=== PATIENT | female | born 1945 | race Caucasian/White ===

== ENCOUNTER 2018-03-09 06:11 | Day surgery (SDC) | payer OTHER, BC ==
[2018-03-03 08:59] VITALS: Ht 160 cm; Wt 133.0 kg
--- NOTE | 2018-03-03 09:31 | PAT Medication Instructions ---
"Service Date Mar 03, 2018. Current Home Medication List Aspirin (Aspirin Ec), 81 MG PO QAM Citalopram (Citalopram Hydrobromide), 40 MG PO QAM Oidjqdtaaql-Mglrbtibupg-Qdj C- (Glucosamine Chondroitin), 1 TAB PO QAM Lorazepam (Lorazepam), 1 TAB PO HS Metformin Hcl (Glucophage), 500 MG PO QAM Nystatin/Triamcinolone (Mycolog ||), 1 DOSE TOP PRN [Atorvastatin], 1 TAB PO QAM [Imodium], 1 TAB PO QAM Medication Instructions For Your Scheduled Surgery -Check with your surgeon for: Aspirin (Aspirin Ec), 81 MG PO QAM - Hold the following medications starting today (03/03): Ydfdedonhrf-Gdcdeitbmmk-Cfq C- (Glucosamine Chondroitin), 1 TAB PO QAM - Hold the following medications 24 hours prior to surgery: Nystatin/Triamcinolone (Mycolog ||), 1 DOSE TOP PRN - Hold the following medications the morning of surgery: Metformin Hcl (Glucophage), 500 MG PO QAM [Imodium], 1 TAB PO QAM - Take the following medications the morning of surgery with a sip of water: Citalopram (Citalopram Hydrobromide), 40 MG PO QAM [Atorvastatin], 1 TAB PO QAM - Take the following medications as scheduled the night before surgery: Lorazepam (Lorazepam), 1 TAB PO HS If you have any questions please call us at [phone] or [phone] or [phone]"
[2018-03-03 10:47] LABS: BASO % 0.3 %; BASO ABS # 0.03 K/uL (0-0.2); EOS % 1.4 %; EOS ABS # 0.13 K/uL (0-0.5); HEMATOCRIT 38.6 % (37-47); HEMOGLOBIN 12.1 g/dL (12.0-16.0); IG# 0.02 K/uL (0.00-0.02); LYMPH % 26.3 %; LYMPH ABS # 2.38 K/uL (1.2-3.4); MEAN CELL VOLUME 89.6 fL (80-100); MEAN CORPUSCULAR HEMOGLOBIN 28.1 pg (25-34); MEAN CORPUSCULAR HGB CONC 31.3 g/dl (32-36); MEAN PLATELET VOLUME 9.6 fL (7.4-10.4); MONO % 7.3 %; MONO ABS # 0.66 K/uL (0.11-0.59); NEUT % 64.5 %; NEUT ABS # 5.84 K/uL (1.4-6.5); PLATELET COUNT 163 K/uL (130-400); RED CELL DISTRIBUTION WIDTH SD 45.9 fL (36.4-46.3); WHITE BLOOD COUNT 9.06 K/uL (4.8-10.8)
--- NOTE | 2018-03-06 10:55 | HISTORY & PHYSICAL EXAMINATION ---
DATE OF ADMISSION: 03/09/2018 CHIEF COMPLAINT: Left wrist pain, discomfort, and swelling. HISTORY OF PRESENT ILLNESS: The patient is a 72-year-old right hand dominant female who presents for treatment of her left wrist. She does have a history of a ganglion excised on her left wrist by Dr. Vickers years ago. Not exactly sure when this was done. It has come back. It is pretty painful for her. She is not interested in doing more aspirations and injections and would just like to have better it is excised. She does have some local numbness around the incision area. It bothers her with activities. PAST MEDICAL HISTORY: Significant for 1. Obesity. 2. Arthritis. 3. Basal cell skin cancer. 4. Anxiety/depression. 5. Diabetes. PREVIOUS SURGICAL HISTORY: Include: 1. Cholecystectomy. 2. Knee replacement. 3. Back surgery. 4. Rotator cuff repair. 5. Hysterectomy. 6. Ganglion surgery. ALLERGIES: VICODIN, OXYCODONE, PERCOCET. CURRENT MEDICINES: Include; 1. Nystatin. 2. Metformin. 3. Citalopram. 4. Lorazepam. 5. Baby aspirin. 6. Glucosamine. SOCIAL HISTORY: Shows a 72-year-old female patient from [place]. Does not smoke. FAMILY HISTORY: Noncontributory. REVIEW OF SYSTEMS: Significant for diabetes. Denies any chest pain or shortness of breath. No numbness or radicular symptoms. No bleeding problems. PHYSICAL EXAMINATION: GENERAL: Reveals a pleasant, middle-aged female. HEENT: Benign. NECK: Supple. No lymphadenopathy. LUNGS: Clear to auscultation. HEART: Regular rate and rhythm. ABDOMEN: Soft, nontender, nondistended. EXTREMITIES: Grossly neurovascularly intact except as follows: Examination of left wrist reveals an obvious volar radial ganglion. She does have a transverse incision just distal to this area. Mild pain with grind testing. No triggering or locking. X-RAYS: X-rays of the left wrist were reviewed. Show some CMC joint arthritis. A little bit of radial carpal joint arthritis as well. ASSESSMENT: A 72-year-old white female with left wrist pain and mass consistent with recurrent volar wrist ganglion after excision years ago. 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 PLAN: We talked about treatment. She would like to have this ganglion excised. We will just excise the ganglion. I do not think at this point it is worth addressing her arthritis underlying this as it makes it a much bigger operation; her pain seems to be coming from the ganglion. The risks and benefits of excision of left wrist ganglion were explained to the patient to include but not limited to DVT, PE, , infection, neurological injury, vascular injury, bleeding problem, reoccurrence, persistent pain, etc. The patient understands and desires to proceed. Informed consent was obtained. We will plan on doing this in the surgical center, but due to her BMI, we have to do this in the main operating room for safety purposes. She should still be able to be discharged to home with a 2-week followup.
[~2018-03-09] VITALS: Ht 160 cm; Wt 133.0 kg
[~2018-03-09 06:11] MED LIST: ASPI81TA28 PO; ATORVASTATIN PO; CITA40TA4 PO; GLC/500 PO; GLUCTAB7 PO; IMODIUM PO; LACTATED RINGER'S 1000ML 1,000 ML IV SCH; LORA0.5T12 PO; NYSTCRE11 TOP
--- NOTE | 2018-03-09 06:47 | History & Physical Bridge Note ---
H&P Re-Evaluation Bridge Note: I have examined the patient, reviewed the History & Physical and in the interval since the performance of the History & Physical I have noted the following changes of clinical significance: No changes noted
[2018-03-09 07:04] VITALS: BP 170/67; PULSE 73; TEMP 36.8; O2SAT 95
[2018-03-09] MEDS ORDERED: LIDOCAINE HCL 2% 2 ML VIAL (20MG/ML) ONE (07:34)
[2018-03-09] MEDS ORDERED: FENTANYL CITRATE INJ 50 MCG/1 ML 2 ML VIAL ONE (07:34)
[2018-03-09] MEDS ORDERED: MIDAZOLAM HCL 1 MG/ML 2ML VIAL ONE ×2 (07:34→08:49)
[2018-03-09] MEDS ORDERED: DEXAMETHASONE SOD INJ 4 MG/ML VIAL ONE (07:34)
[2018-03-09] MEDS ORDERED: GLYCOPYRROLATE INJ 0.2 MG/ML VIAL ONE (07:34)
[2018-03-09] MEDS ORDERED: ONDANSETRON INJ 2 MG/ML 2 ML VIAL ONE (07:34)
[2018-03-09] MEDS ORDERED: PROPOFOL IV EMULSION 10 MG/ML 20 ML VIAL ONE (07:34)
[2018-03-09] MEDS ORDERED: NEOSTIGMINE METHYLSULFATE 5 MG/5 ML SYR ONE (07:34)
[2018-03-09] MEDS ORDERED: SUCCINYLCHOLINE CHLORIDE 20 MG/ML 10 ML VIAL IV ONE (07:35)
[2018-03-09] MEDS ORDERED: BUPIVACAINE/EPINEPHRINE 0.5% MPF 1:200,000 30 ML VIAL ONE (09:03)
[2018-03-09] MEDS ORDERED: CEFAZOLIN SOD 1 GM VIAL ONE (09:20)
[2018-03-09] MEDS ORDERED: SODIUM CHLORIDE 0.9% INJ 10 ML VIAL ONE (09:20)
[2018-03-09] MEDS ORDERED: SODIUM CHLORIDE 0.9% 1000ML 1,000 ML IV SCH (09:46)
--- NOTE | 2018-03-09 09:49 | [facility] Post Operative Brief Note ---
Immediate Operative Summary Operative Date March 09, 2018. Pre-Operative Diagnosis Recurrent Volar Ganglion Cyst Left Wrist Post-Operative Diagnosis Recurrent Volar Ganglion Cyst Left Wrist Procedure(s) Performed Excision Ganglion Cyst Left Wrist Surgeon Dr. Ramesh Toe Lining Closer Surgeon(s) XAVIER Jimenez Estimated Blood Loss 10 ml Findings Consistent with Post-Op Diagnosis Fluids (cc crystalloids) 900 cc Specimens A. Left Ganglion Cyst Drains None Anesthesia Type General Complication(s) none Disposition Accompanied Pt To Recover: no Disposition: Recovery Room / PACU
[2018-03-09] MEDS ORDERED: IBUP-1451 PO (09:59)
[2018-03-09] MEDS ORDERED: PROMETHAZINE HCL INJ 12.5 MG in SODIUM CHLORIDE 0.9% 50ML 50 ML IV SCH (10:00)
[2018-03-09] MEDS ORDERED: ATROPINE SULFATE 0.1 MG/ML 5ML SYR IV PRN (10:00)
[2018-03-09] MEDS ORDERED: EpHEDrine SULFATE INJ 50 MG/ML AMP IV PRN (10:00)
--- NOTE | 2018-03-09 10:00 | Discharge Instructions ---
Discharge Instructions Date of Service March 09, 2018. Admission Reason for Admission: Ganglion and Cyst of Synovium, Tendon and Bursa Discharge Discharge Diagnosis / Problem: left wrist ganglion cyst Discharge Goals Goal(s): Decrease discomfort, Therapeutic intervention Activity Recommendations Activity Limitations: per Instructions/Follow-up section . Instructions / Follow-Up Instructions / Follow-Up MEDICATIONS: * Resume previous medications unless instructed otherwise by your surgeon. * Always take pain medication on a full stomach or with food to avoid upset stomach. * Do not drink alcohol or drive while taking narcotics. * Ibuprofen or Tylenol may be taken if narcotic not needed. SPECIAL CARE INSTRUCTIONS: __ None __ Keep extremity elevated and iced x 48 hours; apply ice 20-30 minutes 8-10 times/day. May remove at night. __ Sling __24 hrs/day __ Remove at night __ Shoulder Immobilizer __ 24 hrs/day __ Remove at night _x_ Dressing _x_ Maintain until seen in office, may shower with plastic over site __ Remove dressings in 24-48 hours and then may shower __ Cover incisions with band-aids after showering __ Do not remove steri-strips Call physician if chills or temperature rises above 102 degrees or pain unrelieved by prescribed pain medications at . . follow up in 2 weeks Current Hospital Diet Patient's current hospital diet: Discharge Diet Recommended Diet: Regular Diet Procedures Procedures Performed: Excision Ganglion Cyst Left Wrist Pending Studies Studies pending at discharge: no Medical Emergencies . Who to Call and When: Medical Emergencies: If at any time you feel your situation is an emergency, please call 911 immediately. . Non-Emergent Contact Non-Emergency issues call your: Surgeon . "Provider Documentation" section prepared by Manohar Naidu. .
--- NOTE | 2018-03-09 10:33 | OPERATIVE REPORT ---
DATE OF OPERATION: 03/09/2018 SURGEON: Kevin Ramesh MD ELEMENTARY SPECIAL EDUCATION TEACHER: XAVIER Pierre PREOPERATIVE DIAGNOSIS: Left recurrent volar wrist ganglion. POSTOPERATIVE DIAGNOSIS: Same. PROCEDURE PERFORMED: Excisional biopsy of left volar wrist mass/probable ganglion. COMPLICATIONS: None. ESTIMATED BLOOD LOSS: 10 mL. TOURNIQUET TIME: 12 minutes at 250 mmHg. ANESTHESIA: General. SPECIMENS: Left wrist mass sent for pathology. OPERATIVE INDICATIONS: The patient is a 72-year-old female who has had a history of a left wrist mass. She had this excised years ago by Dr. Vickers in [place]. Doing well for a while, but the mass has recurred. It was causing her symptoms and she did not want any conservative treatment, wanting to have just this excised. She does have some underlying radiocarpal as well as CMC joint arthritis and we elected to proceed with excision of a ganglion without addressing knee arthritis based on her request and goals for the surgery. OPERATIVE FINDINGS: Operative findings revealed a volar wrist mass. It was coming from the radial carpal joint. It was intimately adherent to the radial artery. OPERATIVE PROCEDURE: The patient was taken to the operating room, identified and placed on the operating table in supine position. All contact areas were appropriately padded. IV antibiotics followed by anesthesia team. A general anesthetic was implemented by anesthesia team. A left forearm tourniquet was placed. The patient did receive IV antibiotics. Left arm was then prepped and draped in usual sterile fashion. The left arm was elevated and exsanguinated with Esmarch and tourniquet was placed at 250 mmHg. A Lashon type incision was made over the volar wrist mass extending just distal to the wrist crease. Sharp dissection was cut through subcutaneous tissue directly down to the mass. I then dissected circumferentially around the mass. The radial artery was intimately entwined on the ulnar side of this mass, and I had to very carefully dissect this off and initially left a little of the wall of the ganglion attached to the artery. I then dissected down and excised the stalk of the ganglion along with a portion of the radial carpal capsule. The mass was sent off for pathology. I then dissected the wall of this mass off the radial artery. I cauterized extensively in this area. We palpated to see if there is any other fluid and there was another lobe of this mass which we also excised. Once this was complete, I did inject locally with about 15 mL of 0.5% Marcaine with epinephrine. The tourniquet was then let down for a tourniquet time of 12 minutes. Hemostasis was assured using electrocautery. We were very careful to obtain meticulous hemostasis. I then irrigated the wound again and then closed the skin with 5-0 nylon suture in a horizontal mattress fashion. The knee was then cleaned and dried and a sterile dressing of Xeroform, 4 x 4's, sterile cast padding and an Luis bandage were applied. The patient then brought out of general anesthesia and transferred to the recovery room in stable condition. The patient tolerated the procedure well with no complications. All needle and sponge counts were correct at the end of the operation. I attest to the content of the Intraoperative Record and any orders documented therein. Any exceptions are noted below. LISSYD
[2018-03-09 10:45] VITALS: BP 172/75; PULSE 92; TEMP 36.6; O2SAT 91
--- NOTE | 2018-03-09 11:14 | Anesthesiology Progress Note ---
Anesthesia Post Op Note Date & Time March 09, 2018 at 11:14 Vital Signs Pain Intensity: 0 Vital Signs Past 12 Hours Date Time Temp Pulse Resp B/P (MAP) Pulse Ox O2 Delivery O2 Flow Rate FiO2 03/09/18 10:40 37.0 93 Nasal Cannula 2 03/09/18 10:38 89 18 03/09/18 10:38 90 18 97 03/09/18 10:36 147/71 03/09/18 10:33 92 14 03/09/18 10:33 92 14 96 03/09/18 10:31 153/72 03/09/18 10:28 87 19 03/09/18 10:28 86 19 94 03/09/18 10:26 163/73 03/09/18 10:23 93 21 03/09/18 10:23 92 21 92 03/09/18 10:21 163/78 03/09/18 10:18 94 23 03/09/18 10:18 94 23 95 03/09/18 10:17 93 21 03/09/18 10:17 93 21 97 03/09/18 10:16 160/82 03/09/18 10:12 89 22 03/09/18 10:12 88 22 95 03/09/18 10:11 162/76 03/09/18 10:07 89 22 96 03/09/18 10:07 88 22 03/09/18 10:06 179/78 03/09/18 10:05 91 22 03/09/18 10:05 91 22 96 03/09/18 10:03 177/77 03/09/18 10:00 98 23 96 03/09/18 10:00 97 23 03/09/18 09:56 186/109 03/09/18 09:55 105 11 03/09/18 09:55 36.6 98 20 186/109 95 Oxymask 10 03/09/18 09:55 105 11 93 03/09/18 07:04 36.8 73 18 170/67 (101) 95 Room Air Notes Mental Status: alert / awake / arousable, participated in evaluation Pt Amnestic to Procedure: Yes Nausea / Vomiting: adequately controlled Pain: adequately controlled Airway Patency, RR, SpO2: stable & adequate BP & HR: stable & adequate Hydration State: stable & adequate Anesthetic Complications: no major complications apparent
[2018-03-09 11:15] VITALS: BP 153/69; PULSE 79; O2SAT 92
[2018-03-09 11:45] VITALS: BP 135/64; PULSE 80; TEMP 36.1; O2SAT 92
== END 2018-03-09 12:00 | disposition home or self-care (01) ==
LOC: C.ACU 06:11
PROVIDERS: ATTEND Orthopaedic Surgery Sports Medicine
DX: M67.432 Ganglion, left wrist (principal); M19.90 Unspecified osteoarthritis, unspecified site; F41.8 Other specified anxiety disorders; M79.7 Fibromyalgia; I10 Essential (primary) hypertension; E11.9 Type 2 diabetes mellitus without complications; E66.9 Obesity, unspecified; Z85.828 Personal history of other malignant neoplasm of skin; Z79.84 Long term (current) use of oral hypoglycemic drugs; Z79.899 Other long term (current) drug therapy; Z79.82 Long term (current) use of aspirin